=== PATIENT | female | born 1970 | race Caucasian/White ===

== ENCOUNTER 2022-05-30 08:15 | Outpatient (RCR) | payer MEDICARE, SELFPAY ==
[2022-05-30] MEDS: Normal Saline Flush 10 ML SYR IVP (08:37)
[2022-05-30 09:02] LABS: Abs Immature Grans 0.04 10^3/uL (0.0-0.06); Absolute Basophil Count 0.07 10^3/uL (0.0-0.2); Absolute Eosinophil Count 0.04 10^3/uL (0.0-0.7); Absolute Lymphocyte Count 2.56 10^3/uL (1.2-3.4); Absolute Monocyte Count 1.16 10^3/uL (0.1-0.8); Basophils % 0.7; Eosinophils % 0.4; HCT 37.3 % (36.0-46.0); HGB 12.6 g/dL (11.2-15.7); Immature Grans % 0.4; Lymphocytes % 26.2; MCH 32.9 pg (27.0-33.0); MCHC 33.8 % (32.0-36.0); MCV 97 fL (80-95); MPV 9.2 fL (8.0-11.0); Monocytes % 11.9; Neutrophils % 60.4; Platelet Count 517 10^3/uL (130-400); RBC 3.83 10^6/uL (3.93-5.22); RDW 14.1 % (11.7-14.6); RDW-SD 49.2 fL; WBC 9.77 10^3/uL (4.4-10.8)
[2022-05-30 09:17] LABS: ALT 98 U/L (14-59); AST 41 U/L (15-37); Albumin 3.7 g/dL (3.4-5.0); Alkaline Phosphatase 134 U/L (46-116); Anion Gap 10.4 mmol/L (3-11); BUN 18 mg/dL (7-18); Bilirubin, Total 0.4 mg/dL (0.2-1.0); CO2 24.6 mmol/L (21.0-32.0); CREATININE 0.7 mg/dL (0.55-1.02); Calcium 9.3 mg/dL (8.5-10.1); Chloride 102 mmol/L (98-107); Glucose 89 mg/dL (74-106); Potassium 4.1 mmol/L (3.5-5.1); Sodium 137 mmol/L (136-145); Total Protein 7.6 g/dL (6.4-8.2)
== END 2022-06-18 23:59 | disposition home or self-care (01) ==
LOC: INF 08:15
PROVIDERS: PCP Physician Assistant Medical; Visit Provider Internal Medicine Hematology & Oncology
DX: C50.512 Malignant neoplasm of lower-outer quadrant of left female breast (principal); Z17.1 Estrogen receptor negative status [ER-]; Z45.2 Encounter for adjustment and management of vascular access device
CPT/HCPCS: 36591; 80053; 85025

== ENCOUNTER 2022-07-11 04:10 | Outpatient (RCR) | payer MEDICARE, SELFPAY ==
[2022-06-20] MEDS: Normal Saline Flush 10 ML SYR IVP (08:52)
[2022-06-20 09:14] LABS: Abs Immature Grans 0.01 10^3/uL (0.0-0.06); Absolute Basophil Count 0.09 10^3/uL (0.0-0.2); Absolute Eosinophil Count 0.03 10^3/uL (0.0-0.7); Absolute Lymphocyte Count 3.04 10^3/uL (1.2-3.4); Absolute Monocyte Count 1.19 10^3/uL (0.1-0.8); Eosinophils % 0.3; HCT 36.5 % (36.0-46.0); HGB 12.2 g/dL (11.2-15.7); Immature Grans % 0.1; Lymphocytes % 35.1; MCH 33.2 pg (27.0-33.0); MCHC 33.4 % (32.0-36.0); MCV 100 fL (80-95); MPV 8.9 fL (8.0-11.0); Monocytes % 13.7; Neutrophils % 49.8; Platelet Count 337 10^3/uL (130-400); RBC 3.67 10^6/uL (3.93-5.22); RDW 15.4 % (11.7-14.6); RDW-SD 56.2 fL; WBC 8.66 10^3/uL (4.4-10.8)
[2022-06-20 09:22] LABS: ALT 124 U/L (14-59); AST 62 U/L (15-37); Albumin 3.5 g/dL (3.4-5.0); Alkaline Phosphatase 127 U/L (46-116); Anion Gap 8.6 mmol/L (3-11); BUN 14 mg/dL (7-18); Bilirubin, Total 0.4 mg/dL (0.2-1.0); CO2 26.4 mmol/L (21.0-32.0); CREATININE 0.8 mg/dL (0.55-1.02); Calcium 9.4 mg/dL (8.5-10.1); Chloride 102 mmol/L (98-107); Glucose 89 mg/dL (74-106); Potassium 3.8 mmol/L (3.5-5.1); Sodium 137 mmol/L (136-145); Total Protein 7.5 g/dL (6.4-8.2)
[2022-07-11] MEDS: Normal Saline Flush 10 ML SYR IVP (09:03)
[2022-07-11 09:10] LABS: Abs Immature Grans 0.03 10^3/uL (0.0-0.06); Absolute Basophil Count 0.07 10^3/uL (0.0-0.2); Absolute Eosinophil Count 0.01 10^3/uL (0.0-0.7); Absolute Lymphocyte Count 3.46 10^3/uL (1.2-3.4); Absolute Monocyte Count 1.28 10^3/uL (0.1-0.8); Absolute Neutrophil Count 4.43 10^3/uL (1.2-6.7); Basophils % 0.8; Eosinophils % 0.1; HCT 38.6 % (36.0-46.0); HGB 13.2 g/dL (11.2-15.7); Immature Grans % 0.3; Lymphocytes % 37.3; MCH 34.7 pg (27.0-33.0); MCHC 34.2 % (32.0-36.0); MCV 102 fL (80-95); MPV 8.6 fL (8.0-11.0); Monocytes % 13.8; Neutrophils % 47.7; Platelet Count 337 10^3/uL (130-400); RDW-SD 60.1 fL; WBC 9.28 10^3/uL (4.4-10.8)
[2022-07-11 09:28] LABS: ALT 93 U/L (14-59); AST 48 U/L (15-37); Albumin 3.6 g/dL (3.4-5.0); Alkaline Phosphatase 140 U/L (46-116); Anion Gap 8.2 mmol/L (3-11); BUN 19 mg/dL (7-18); Bilirubin, Total 0.3 mg/dL (0.2-1.0); CO2 25.8 mmol/L (21.0-32.0); CREATININE 0.9 mg/dL (0.55-1.02); Calcium 9.4 mg/dL (8.5-10.1); Chloride 103 mmol/L (98-107); Estimated GFR 76.92 (mL/min/1.73m2); Glucose 99 mg/dL (74-106); Potassium 4.3 mmol/L (3.5-5.1); Sodium 137 mmol/L (136-145); Total Protein 7.7 g/dL (6.4-8.2)
== END 2022-07-19 23:59 | disposition home or self-care (01) ==
LOC: INF 04:10
PROVIDERS: PCP Physician Assistant Medical; Visit Provider Internal Medicine Hematology & Oncology
DX: C50.512 Malignant neoplasm of lower-outer quadrant of left female breast (principal); Z45.2 Encounter for adjustment and management of vascular access device
CPT/HCPCS: 36591; 80053; 85025

== ENCOUNTER 2022-08-01 01:18 | Outpatient (RCR) | payer MEDICARE, MEDICAID, SELFPAY ==
[2022-08-01] MEDS: Normal Saline Flush 10 ML SYR IVP (08:32)
[2022-08-01 11:57] LABS: Abs Immature Grans 0.01 10^3/uL (0.0-0.06); Absolute Basophil Count 0.08 10^3/uL (0.0-0.2); Absolute Eosinophil Count 0.02 10^3/uL (0.0-0.7); Absolute Lymphocyte Count 3.12 10^3/uL (1.2-3.4); Absolute Monocyte Count 1.32 10^3/uL (0.1-0.8); Basophils % 0.9; Eosinophils % 0.2; HGB 11.7 g/dL (11.2-15.7); Immature Grans % 0.1; Lymphocytes % 36.5; MCH 35.1 pg (27.0-33.0); MCHC 33.4 % (32.0-36.0); MCV 105 fL (80-95); MPV 8.8 fL (8.0-11.0); Monocytes % 15.4; Neutrophils % 46.9; Platelet Count 302 10^3/uL (130-400); RBC 3.33 10^6/uL (3.93-5.22); RDW 16.5 % (11.7-14.6); RDW-SD 65.2 fL; WBC 8.55 10^3/uL (4.4-10.8)
[2022-08-01 11:59] LABS: ALT 70 U/L (14-59); AST 45 U/L (15-37); Alkaline Phosphatase 111 U/L (46-116); Anion Gap 6.2 mmol/L (3-11); BUN 17 mg/dL (7-18); Bilirubin, Total 0.3 mg/dL (0.2-1.0); CO2 26.8 mmol/L (21.0-32.0); CREATININE 0.8 mg/dL (0.55-1.02); Chloride 107 mmol/L (98-107); Glucose 100 mg/dL (74-106); Poikilocytes 1+; Potassium 4.1 mmol/L (3.5-5.1); Sodium 140 mmol/L (136-145); Total Protein 6.6 g/dL (6.4-8.2)
== END 2022-08-18 23:59 | disposition home or self-care (01) ==
LOC: INF 01:18
PROVIDERS: PCP Physician Assistant Medical; Visit Provider Internal Medicine Hematology & Oncology
DX: C50.512 Malignant neoplasm of lower-outer quadrant of left female breast (principal); Z45.2 Encounter for adjustment and management of vascular access device
CPT/HCPCS: 36591; 80053; 85025

== ENCOUNTER 2022-09-12 02:39 | Outpatient (RCR) | payer MEDICARE, MEDICAID, SELFPAY ==
[2022-08-22] MEDS: Normal Saline Flush 10 ML SYR IVP (08:06)
[2022-08-22 08:39] LABS: Abs Immature Grans 0.03 10^3/uL (0.0-0.06); Absolute Basophil Count 0.06 10^3/uL (0.0-0.2); Absolute Eosinophil Count 0.01 10^3/uL (0.0-0.7); Absolute Lymphocyte Count 2.58 10^3/uL (1.2-3.4); Absolute Monocyte Count 0.88 10^3/uL (0.1-0.8); Absolute Neutrophil Count 3.99 10^3/uL (1.2-6.7); Basophils % 0.8; Eosinophils % 0.1; HCT 35.5 % (36.0-46.0); HGB 12.1 g/dL (11.2-15.7); Immature Grans % 0.4; Lymphocytes % 34.2; MCH 35.9 pg (27.0-33.0); MCHC 34.1 % (32.0-36.0); MCV 105 fL (80-95); Monocytes % 11.7; Neutrophils % 52.8; Platelet Count 232 10^3/uL (130-400); RBC 3.37 10^6/uL (3.93-5.22); RDW 15.4 % (11.7-14.6); RDW-SD 59.7 fL; WBC 7.55 10^3/uL (4.4-10.8)
[2022-08-22 08:47] LABS: Diff Comment Diff Reviewed
[2022-08-22 08:48] LABS: Macrocytosis 2+
[2022-08-22 08:53] LABS: ALT 69 U/L (14-59); AST 45 U/L (15-37); Alkaline Phosphatase 129 U/L (46-116); Anion Gap 6.9 mmol/L (3-11); BUN 18 mg/dL (7-18); Bilirubin, Total 0.2 mg/dL (0.2-1.0); CO2 28.1 mmol/L (21.0-32.0); CREATININE 0.6 mg/dL (0.55-1.02); Chloride 104 mmol/L (98-107); Estimated GFR 107.93 (mL/min/1.73m2); Glucose 89 mg/dL (74-106); Potassium 4.4 mmol/L (3.5-5.1); Sodium 139 mmol/L (136-145); Total Protein 6.9 g/dL (6.4-8.2)
[2022-09-12 09:15] LABS: Abs Immature Grans 0.02 10^3/uL (0.0-0.06); Absolute Basophil Count 0.03 10^3/uL (0.0-0.2); Absolute Eosinophil Count 0.01 10^3/uL (0.0-0.7); Absolute Lymphocyte Count 2.23 10^3/uL (1.2-3.4); Absolute Monocyte Count 0.73 10^3/uL (0.1-0.8); Absolute Neutrophil Count 2.76 10^3/uL (1.2-6.7); Basophils % 0.5; Eosinophils % 0.2; HCT 33.2 % (36.0-46.0); HGB 11.2 g/dL (11.2-15.7); Immature Grans % 0.3; Lymphocytes % 38.6; MCH 35.7 pg (27.0-33.0); MCHC 33.7 % (32.0-36.0); MCV 106 fL (80-95); MPV 9.4 fL (8.0-11.0); Monocytes % 12.6; Neutrophils % 47.8; Platelet Count 152 10^3/uL (130-400); RBC 3.14 10^6/uL (3.93-5.22); RDW 15.4 % (11.7-14.6); RDW-SD 58.8 fL; WBC 5.78 10^3/uL (4.4-10.8)
[2022-09-12 09:28] LABS: ALT 81 U/L (14-59); AST 47 U/L (15-37); Albumin 2.8 g/dL (3.4-5.0); Alkaline Phosphatase 116 U/L (46-116); Anion Gap 5.9 mmol/L (3-11); BUN 18 mg/dL (7-18); Bilirubin, Total 0.3 mg/dL (0.2-1.0); CO2 28.1 mmol/L (21.0-32.0); CREATININE 0.6 mg/dL (0.55-1.02); Calcium 8.8 mg/dL (8.5-10.1); Chloride 104 mmol/L (98-107); Estimated GFR 107.26 (mL/min/1.73m2); Glucose 113 mg/dL (74-106); Potassium 3.8 mmol/L (3.5-5.1); Sodium 138 mmol/L (136-145); Total Protein 6.7 g/dL (6.4-8.2)
== END 2022-09-18 23:59 | disposition home or self-care (01) ==
LOC: INF 02:39
PROVIDERS: PCP Physician Assistant Medical; Visit Provider Internal Medicine Hematology & Oncology
DX: C50.512 Malignant neoplasm of lower-outer quadrant of left female breast (principal); Z45.2 Encounter for adjustment and management of vascular access device
CPT/HCPCS: 36415; 36591; 80053; 85025

== ENCOUNTER 2022-09-12 12:09 | Outpatient (CLI) | payer MEDICARE, MEDICAID, SELFPAY ==
--- NOTE | 2022-09-12 13:10 | DI.RAD_ITS ---
Exam(s) XR CHEST 2V PA LATERAL EXAM: XR CHEST 2V PA LATERAL CLINICAL HISTORY: BREAST CANCER C50.512 Z17.1 CHECK POSITION CENTRAL CATHETER TECHNIQUE: 2D digital imaging was performed of the chest. Two images were obtained. PA and lateral views were obtained. COMPARISON: No exams were available for comparison FINDINGS: MEDIASTINUM: Normal. HEART: Normal. PULMONARY VASCULATURE: Normal. LUNGS: Clear. PLEURAL SPACE: No pleural effusion or pneumothorax. BONE:Within normal limits for the patient's age. OTHER FINDINGS:The right-sided port is in place. The tip is in good position at the junction of the superior vena cava and right atrium. IMPRESSION: 1. No acute pulmonary findings. 2. The tip of the right-sided port is in good position at the junction of the superior vena cava and right atrium. DATA REPOSITORY: RADIATION DOSE DELIVERED:
== END 2022-09-12 12:29 ==
PROVIDERS: PCP Physician Assistant Medical; Visit Provider Internal Medicine Hematology & Oncology
DX: C50.512 Malignant neoplasm of lower-outer quadrant of left female breast (principal); Z17.1 Estrogen receptor negative status [ER-]
CPT/HCPCS: 36415; 80053; 71046; 85025

== ENCOUNTER 2022-10-03 01:06 | Outpatient (RCR) | payer MEDICARE, MEDICAID, SELFPAY ==
[2022-10-03] MEDS: Normal Saline Flush 10 ML SYR IVP (08:56)
[2022-10-03 09:23] LABS: Abs Immature Grans 0.01 10^3/uL (0.0-0.06); Absolute Basophil Count 0.04 10^3/uL (0.0-0.2); Absolute Eosinophil Count 0.05 10^3/uL (0.0-0.7); Absolute Lymphocyte Count 3.05 10^3/uL (1.2-3.4); Absolute Monocyte Count 0.84 10^3/uL (0.1-0.8); Absolute Neutrophil Count 3.32 10^3/uL (1.2-6.7); Basophils % 0.5; Eosinophils % 0.7; HGB 13.1 g/dL (11.2-15.7); Immature Grans % 0.1; Lymphocytes % 41.7; MCH 36.6 pg (27.0-33.0); MCHC 33.6 % (32.0-36.0); MCV 109 fL (80-95); MPV 8.7 fL (8.0-11.0); Monocytes % 11.5; Neutrophils % 45.5; Platelet Count 259 10^3/uL (130-400); RBC 3.58 10^6/uL (3.93-5.22); RDW 14.6 % (11.7-14.6); RDW-SD 59.2 fL; WBC 7.31 10^3/uL (4.4-10.8)
[2022-10-03 09:36] LABS: ALT 49 U/L (14-59); AST 31 U/L (15-37); Albumin 3.2 g/dL (3.4-5.0); Alkaline Phosphatase 106 U/L (46-116); Anion Gap 6.7 mmol/L (3-11); BUN 18 mg/dL (7-18); Bilirubin, Total 0.3 mg/dL (0.2-1.0); CO2 27.3 mmol/L (21.0-32.0); CREATININE 0.8 mg/dL (0.55-1.02); Calcium 8.8 mg/dL (8.5-10.1); Chloride 108 mmol/L (98-107); Estimated GFR 88.05 (mL/min/1.73m2); Glucose 97 mg/dL (74-106); Potassium 3.9 mmol/L (3.5-5.1); Sodium 142 mmol/L (136-145); Total Protein 7.1 g/dL (6.4-8.2)
== END 2022-10-18 23:59 | disposition home or self-care (01) ==
LOC: INF 01:06
PROVIDERS: PCP Physician Assistant Medical; Visit Provider Internal Medicine Hematology & Oncology
DX: Z17.1 Estrogen receptor negative status [ER-] (principal); Z45.2 Encounter for adjustment and management of vascular access device
CPT/HCPCS: 36591; 80053; 85025

== ENCOUNTER 2022-11-14 03:38 | Outpatient (RCR) | payer MEDICARE, MEDICAID, SELFPAY ==
[2022-11-14] MEDS: Normal Saline Flush 10 ML SYR IVP (08:59)
[2022-11-14] MEDS: Heparin 500 UNITS/5 ML SYRINGE IV (08:59)
[2022-11-14 09:24] LABS: Abs Immature Grans 0.01 10^3/uL (0.0-0.06); Absolute Basophil Count 0.06 10^3/uL (0.0-0.2); Absolute Eosinophil Count 0.16 10^3/uL (0.0-0.7); Absolute Lymphocyte Count 3.32 10^3/uL (1.2-3.4); Absolute Monocyte Count 0.63 10^3/uL (0.1-0.8); Absolute Neutrophil Count 3.91 10^3/uL (1.2-6.7); Basophils % 0.7; HCT 39.4 % (36.0-46.0); HGB 13.6 g/dL (11.2-15.7); Immature Grans % 0.1; MCH 35.1 pg (27.0-33.0); MCHC 34.5 % (32.0-36.0); MCV 102 fL (80-95); MPV 8.7 fL (8.0-11.0); Monocytes % 7.8; Neutrophils % 48.4; Platelet Count 272 10^3/uL (130-400); RBC 3.87 10^6/uL (3.93-5.22); RDW 11.9 % (11.7-14.6); RDW-SD 44.9 fL; WBC 8.09 10^3/uL (4.4-10.8)
[2022-11-14 09:39] LABS: ALT 34 U/L (14-59); AST 25 U/L (15-37); Albumin 3.7 g/dL (3.4-5.0); Alkaline Phosphatase 122 U/L (46-116); Anion Gap 8.4 mmol/L (3-11); BUN 13 mg/dL (7-18); Bilirubin, Total 0.4 mg/dL (0.2-1.0); CO2 26.6 mmol/L (21.0-32.0); CREATININE 0.8 mg/dL (0.55-1.02); Calcium 9.3 mg/dL (8.5-10.1); Chloride 104 mmol/L (98-107); Estimated GFR 88.05 (mL/min/1.73m2); Glucose 95 mg/dL (74-106); Potassium 4.2 mmol/L (3.5-5.1); Sodium 139 mmol/L (136-145); Total Protein 7.6 g/dL (6.4-8.2)
== END 2022-11-18 23:59 | disposition home or self-care (01) ==
LOC: INF 03:38
PROVIDERS: PCP Physician Assistant Medical; Visit Provider Internal Medicine Hematology & Oncology
DX: C50.512 Malignant neoplasm of lower-outer quadrant of left female breast (principal); Z45.2 Encounter for adjustment and management of vascular access device
CPT/HCPCS: 36591; 80053; 85025

== ENCOUNTER 2023-01-09 03:30 | Outpatient (RCR) | payer MEDICARE, MEDICAID, SELFPAY ==
[2023-01-09] MEDS: Normal Saline Flush 10 ML SYR IVP (08:33)
[2023-01-09 08:38] LABS: Abs Immature Grans 0.02 10^3/uL (0.0-0.06); Absolute Basophil Count 0.06 10^3/uL (0.0-0.2); Absolute Eosinophil Count 0.08 10^3/uL (0.0-0.7); Absolute Lymphocyte Count 3.19 10^3/uL (1.2-3.4); Absolute Monocyte Count 0.72 10^3/uL (0.1-0.8); Absolute Neutrophil Count 3.84 10^3/uL (1.2-6.7); Basophils % 0.8; HCT 37.9 % (36.0-46.0); HGB 13.1 g/dL (11.2-15.7); Immature Grans % 0.3; Lymphocytes % 40.3; MCH 34.9 pg (27.0-33.0); MCHC 34.6 % (32.0-36.0); MCV 101 fL (80-95); MPV 8.9 fL (8.0-11.0); Monocytes % 9.1; Neutrophils % 48.5; Platelet Count 297 10^3/uL (130-400); RBC 3.75 10^6/uL (3.93-5.22); RDW 13.4 % (11.7-14.6); RDW-SD 49.7 fL; WBC 7.91 10^3/uL (4.4-10.8)
[2023-01-09 09:00] LABS: ALT 49 U/L (14-59); AST 29 U/L (15-37); Albumin 3.8 g/dL (3.4-5.0); Alkaline Phosphatase 132 U/L (46-116); Anion Gap 11.2 mmol/L (3-11); BUN 16 mg/dL (7-18); Bilirubin, Total 0.4 mg/dL (0.2-1.0); CO2 25.8 mmol/L (21.0-32.0); CREATININE 0.7 mg/dL (0.55-1.02); Chloride 100 mmol/L (98-107); Estimated GFR 103.35 (mL/min/1.73m2); Glucose 89 mg/dL (74-106); Potassium 4.2 mmol/L (3.5-5.1); Sodium 137 mmol/L (136-145); Total Protein 8.1 g/dL (6.4-8.2)
== END 2023-01-18 23:59 | disposition home or self-care (01) ==
LOC: INF 03:30
PROVIDERS: PCP Physician Assistant Medical; Visit Provider Internal Medicine Hematology & Oncology
DX: C50.512 Malignant neoplasm of lower-outer quadrant of left female breast (principal); Z17.1 Estrogen receptor negative status [ER-]
CPT/HCPCS: 36591; 80053; 85025

== ENCOUNTER 2023-01-30 00:59 | Outpatient (RCR) | payer MEDICARE, MEDICAID, SELFPAY ==
[2023-01-30 08:33] LABS: Abs Immature Grans 0.01 10^3/uL (0.0-0.06); Absolute Basophil Count 0.04 10^3/uL (0.0-0.2); Absolute Eosinophil Count 0.06 10^3/uL (0.0-0.7); Absolute Lymphocyte Count 2.38 10^3/uL (1.2-3.4); Absolute Monocyte Count 0.68 10^3/uL (0.1-0.8); Absolute Neutrophil Count 3.52 10^3/uL (1.2-6.7); Basophils % 0.6; Eosinophils % 0.9; HCT 36.6 % (36.0-46.0); HGB 12.6 g/dL (11.2-15.7); Immature Grans % 0.1; Lymphocytes % 35.6; MCHC 34.4 % (32.0-36.0); MCV 102 fL (80-95); MPV 8.7 fL (8.0-11.0); Monocytes % 10.2; Neutrophils % 52.6; Platelet Count 243 10^3/uL (130-400); RDW 13.3 % (11.7-14.6); RDW-SD 50.5 fL; WBC 6.69 10^3/uL (4.4-10.8)
[2023-01-30] MEDS: Normal Saline Flush 10 ML SYR IVP (08:34)
[2023-01-30 08:50] LABS: ALT 34 U/L (14-59); AST 24 U/L (15-37); Albumin 3.5 g/dL (3.4-5.0); Alkaline Phosphatase 123 U/L (46-116); Anion Gap 7.5 mmol/L (3-11); BUN 21 mg/dL (7-18); Bilirubin, Total 0.3 mg/dL (0.2-1.0); CO2 25.5 mmol/L (21.0-32.0); CREATININE 0.8 mg/dL (0.55-1.02); Calcium 9.2 mg/dL (8.5-10.1); Chloride 103 mmol/L (98-107); Estimated GFR 88.05 (mL/min/1.73m2); Glucose 94 mg/dL (74-106); Potassium 4.5 mmol/L (3.5-5.1); Sodium 136 mmol/L (136-145); Total Protein 7.6 g/dL (6.4-8.2)
== END 2023-02-18 23:59 | disposition home or self-care (01) ==
LOC: INF 00:59
PROVIDERS: PCP Physician Assistant Medical; Visit Provider Internal Medicine Hematology & Oncology
DX: C50.512 Malignant neoplasm of lower-outer quadrant of left female breast (principal); Z17.1 Estrogen receptor negative status [ER-]; Z45.2 Encounter for adjustment and management of vascular access device
CPT/HCPCS: 36591; 80053; 85025

== ENCOUNTER 2023-03-14 00:25 | Outpatient (RCR) | payer MEDICARE, MEDICAID, SELFPAY ==
[2023-02-20] MEDS: Normal Saline Flush 10 ML SYR IVP (09:28)
[2023-02-20 10:09] LABS: Abs Immature Grans 0.01 10^3/uL (0.0-0.06); Absolute Basophil Count 0.04 10^3/uL (0.0-0.2); Absolute Lymphocyte Count 1.07 10^3/uL (1.2-3.4); Absolute Monocyte Count 0.65 10^3/uL (0.1-0.8); Absolute Neutrophil Count 3.32 10^3/uL (1.2-6.7); Basophils % 0.8; Eosinophils % 1.9; HGB 11.9 g/dL (11.2-15.7); Immature Grans % 0.2; Lymphocytes % 20.6; MCH 34.4 pg (27.0-33.0); MCV 101 fL (80-95); Monocytes % 12.5; Platelet Count 261 10^3/uL (130-400); RBC 3.46 10^6/uL (3.93-5.22); RDW 12.6 % (11.7-14.6); RDW-SD 47.4 fL; WBC 5.19 10^3/uL (4.4-10.8)
[2023-02-20 10:28] LABS: ALT 46 U/L (14-59); AST 29 U/L (15-37); Albumin 3.6 g/dL (3.4-5.0); Alkaline Phosphatase 129 U/L (46-116); Anion Gap 7.9 mmol/L (3-11); BUN 22 mg/dL (7-18); Bilirubin, Total 0.3 mg/dL (0.2-1.0); CO2 25.1 mmol/L (21.0-32.0); CREATININE 0.9 mg/dL (0.55-1.02); Calcium 9.2 mg/dL (8.5-10.1); Chloride 103 mmol/L (98-107); Estimated GFR 76.44 (mL/min/1.73m2); Glucose 84 mg/dL (74-106); Potassium 4.1 mmol/L (3.5-5.1); Sodium 136 mmol/L (136-145); Total Protein 7.3 g/dL (6.4-8.2)
[2023-03-14 07:39] LABS: Abs Immature Grans 0.01 10^3/uL (0.0-0.06); Absolute Basophil Count 0.05 10^3/uL (0.0-0.2); Absolute Eosinophil Count 0.12 10^3/uL (0.0-0.7); Absolute Lymphocyte Count 1.05 10^3/uL (1.2-3.4); Absolute Monocyte Count 0.94 10^3/uL (0.1-0.8); Absolute Neutrophil Count 4.18 10^3/uL (1.2-6.7); Basophils % 0.8; Eosinophils % 1.9; HCT 34.8 % (36.0-46.0); HGB 11.9 g/dL (11.2-15.7); Immature Grans % 0.2; Lymphocytes % 16.5; MCHC 34.2 % (32.0-36.0); MCV 102 fL (80-95); MPV 8.8 fL (8.0-11.0); Monocytes % 14.8; Neutrophils % 65.8; Platelet Count 259 10^3/uL (130-400); RDW 12.9 % (11.7-14.6); RDW-SD 47.9 fL; WBC 6.35 10^3/uL (4.4-10.8)
[2023-03-14] MEDS: Normal Saline Flush 10 ML SYR IVP (07:57)
== END 2023-03-20 23:59 | disposition home or self-care (01) ==
LOC: INF 00:25
PROVIDERS: PCP Physician Assistant Medical; Visit Provider Internal Medicine Hematology & Oncology
DX: C50.512 Malignant neoplasm of lower-outer quadrant of left female breast (principal); Z17.1 Estrogen receptor negative status [ER-]; Z45.2 Encounter for adjustment and management of vascular access device
CPT/HCPCS: 36591; 80053; 85025

== ENCOUNTER 2023-03-14 09:27 | Outpatient (REF) | payer MEDICARE, SELFPAY ==
[2023-03-14 09:48] LABS: ALT 45 U/L (14-59); AST 31 U/L (15-37); Albumin 3.4 g/dL (3.4-5.0); Alkaline Phosphatase 117 U/L (46-116); Anion Gap 6.3 mmol/L (3-11); BUN 22 mg/dL (7-18); Bilirubin, Total 0.4 mg/dL (0.2-1.0); CO2 25.7 mmol/L (21.0-32.0); CREATININE 0.7 mg/dL (0.55-1.02); Calcium 9.2 mg/dL (8.5-10.1); Chloride 103 mmol/L (98-107); Estimated GFR 103.35 (mL/min/1.73m2); Glucose 95 mg/dL (74-106); Potassium 4.4 mmol/L (3.5-5.1); Sodium 135 mmol/L (136-145); Total Protein 7.4 g/dL (6.4-8.2)
== END 2023-03-14 09:28 | disposition home or self-care (01) ==
LOC: LBN 09:27
PROVIDERS: PCP Nurse Practitioner Family; Visit Provider Nurse Practitioner Family
DX: C50.512 Malignant neoplasm of lower-outer quadrant of left female breast (principal); Z17.1 Estrogen receptor negative status [ER-]
CPT/HCPCS: 80053

== ENCOUNTER 2023-04-03 09:21 | Outpatient (RCR) | payer MEDICARE, MEDICAID, SELFPAY ==
[2023-04-03] MEDS: Normal Saline Flush 10 ML SYR IVP (09:12)
[2023-04-03 12:06] LABS: ALT 72 U/L (14-59); AST 36 U/L (15-37); Albumin 3.6 g/dL (3.4-5.0); Alkaline Phosphatase 142 U/L (46-116); Anion Gap 9.3 mmol/L (3-11); BUN 23 mg/dL (7-18); Bilirubin, Total 0.4 mg/dL (0.2-1.0); CO2 25.7 mmol/L (21.0-32.0); CREATININE 0.8 mg/dL (0.55-1.02); Chloride 102 mmol/L (98-107); Estimated GFR 88.05 (mL/min/1.73m2); Glucose 104 mg/dL (74-106); Potassium 4.5 mmol/L (3.5-5.1); Sodium 137 mmol/L (136-145); Total Protein 7.6 g/dL (6.4-8.2)
[2023-04-03 12:07] LABS: Absolute Neutrophil Count 3.23 10^3/uL (1.2-6.7); HCT 38.4 % (36.0-46.0); HGB 13.4 g/dL (11.2-15.7); MCH 35.4 pg (27.0-33.0); MCHC 34.9 % (32.0-36.0); MCV 101 fL (80-95); MPV 8.6 fL (8.0-11.0); Neutrophils % 63.1; Platelet Count 296 10^3/uL (130-400); RBC 3.79 10^6/uL (3.93-5.22); RDW 12.7 % (11.7-14.6); RDW-SD 47.8 fL; WBC 5.12 10^3/uL (4.4-10.8)
[2023-04-03 12:08] LABS: Absolute Basophil Count 0.05 10^3/uL (0.0-0.2); Absolute Eosinophil Count 0.12 10^3/uL (0.0-0.7); Absolute Lymphocyte Count 0.98 10^3/uL (1.2-3.4); Absolute Monocyte Count 0.72 10^3/uL (0.1-0.8); Eosinophils % 2.3; Immature Grans % 0.4; Lymphocytes % 19.1; Monocytes % 14.1
== END 2023-04-20 23:59 | disposition home or self-care (01) ==
LOC: INF 09:21
PROVIDERS: PCP Nurse Practitioner Family; Visit Provider Internal Medicine Hematology & Oncology
DX: C50.512 Malignant neoplasm of lower-outer quadrant of left female breast (principal); Z17.1 Estrogen receptor negative status [ER-]; Z45.2 Encounter for adjustment and management of vascular access device
CPT/HCPCS: 36591; 80053; 85025

== ENCOUNTER 2023-05-15 03:27 | Outpatient (RCR) | payer MEDICARE, MEDICAID, SELFPAY ==
[2023-04-24] MEDS: Normal Saline Flush 10 ML SYR IVP (07:28)
[2023-04-24 07:59] LABS: Abs Immature Grans 0.01 10^3/uL (0.0-0.06); Absolute Basophil Count 0.07 10^3/uL (0.0-0.2); Absolute Eosinophil Count 0.13 10^3/uL (0.0-0.7); Absolute Lymphocyte Count 1.18 10^3/uL (1.2-3.4); Absolute Monocyte Count 1.13 10^3/uL (0.1-0.8); Absolute Neutrophil Count 4.19 10^3/uL (1.2-6.7); Eosinophils % 1.9; HCT 41.2 % (36.0-46.0); HGB 13.9 g/dL (11.2-15.7); Immature Grans % 0.1; Lymphocytes % 17.6; MCH 34.2 pg (27.0-33.0); MCHC 33.7 % (32.0-36.0); MCV 101 fL (80-95); MPV 9.1 fL (8.0-11.0); Monocytes % 16.8; Neutrophils % 62.6; Platelet Count 300 10^3/uL (130-400); RBC 4.07 10^6/uL (3.93-5.22); RDW 13.3 % (11.7-14.6); WBC 6.71 10^3/uL (4.4-10.8)
[2023-04-24 08:16] LABS: ALT 67 U/L (14-59); AST 40 U/L (15-37); Albumin 3.4 g/dL (3.4-5.0); Alkaline Phosphatase 146 U/L (46-116); Anion Gap 10.9 mmol/L (3-11); BUN 30 mg/dL (7-18); Bilirubin, Total 0.5 mg/dL (0.2-1.0); CO2 25.1 mmol/L (21.0-32.0); CREATININE 0.8 mg/dL (0.55-1.02); Calcium 9.8 mg/dL (8.5-10.1); Chloride 99 mmol/L (98-107); Estimated GFR 88.05 (mL/min/1.73m2); Glucose 93 mg/dL (74-106); Potassium 4.7 mmol/L (3.5-5.1); Sodium 135 mmol/L (136-145); Total Protein 8.3 g/dL (6.4-8.2)
[2023-05-15] MEDS: Normal Saline Flush 10 ML SYR IVP (07:24)
[2023-05-15 07:29] LABS: Abs Immature Grans 0.03 10^3/uL (0.0-0.06); Absolute Basophil Count 0.08 10^3/uL (0.0-0.2); Absolute Eosinophil Count 0.16 10^3/uL (0.0-0.7); Absolute Lymphocyte Count 1.12 10^3/uL (1.2-3.4); Absolute Monocyte Count 1.06 10^3/uL (0.1-0.8); Absolute Neutrophil Count 6.16 10^3/uL (1.2-6.7); Basophils % 0.9; Eosinophils % 1.9; HCT 39.1 % (36.0-46.0); Immature Grans % 0.3; MCHC 33.2 % (32.0-36.0); MCV 102 fL (80-95); MPV 8.5 fL (8.0-11.0); Monocytes % 12.3; Neutrophils % 71.6; Platelet Count 300 10^3/uL (130-400); RBC 3.82 10^6/uL (3.93-5.22); RDW 13.1 % (11.7-14.6); RDW-SD 49.4 fL; WBC 8.61 10^3/uL (4.4-10.8)
[2023-05-15 07:48] LABS: ALT 99 U/L (14-59); AST 51 U/L (15-37); Albumin 3.3 g/dL (3.4-5.0); Alkaline Phosphatase 158 U/L (46-116); Anion Gap 11.5 mmol/L (3-11); BUN 19 mg/dL (7-18); Bilirubin, Total 0.4 mg/dL (0.2-1.0); CO2 23.5 mmol/L (21.0-32.0); CREATININE 0.6 mg/dL (0.55-1.02); Calcium 9.2 mg/dL (8.5-10.1); Chloride 105 mmol/L (98-107); Estimated GFR 107.26 (mL/min/1.73m2); Glucose 109 mg/dL (74-106); Potassium 4.4 mmol/L (3.5-5.1); Sodium 140 mmol/L (136-145); Total Protein 7.6 g/dL (6.4-8.2)
== END 2023-05-21 23:59 | disposition home or self-care (01) ==
LOC: INF 03:27
PROVIDERS: PCP Nurse Practitioner Family; Visit Provider Internal Medicine Hematology & Oncology
DX: C50.512 Malignant neoplasm of lower-outer quadrant of left female breast (principal); Z17.1 Estrogen receptor negative status [ER-]; Z45.2 Encounter for adjustment and management of vascular access device
CPT/HCPCS: 36591; 80053; 85025

== ENCOUNTER 2023-06-05 04:02 | Outpatient (RCR) | payer MEDICARE, MEDICAID, SELFPAY ==
[2023-06-05] MEDS: Normal Saline Flush 10 ML SYR IVP (07:54)
[2023-06-05 08:35] LABS: Abs Immature Grans 0.01 10^3/uL (0.0-0.06); Absolute Basophil Count 0.04 10^3/uL (0.0-0.2); Absolute Eosinophil Count 0.11 10^3/uL (0.0-0.7); Absolute Lymphocyte Count 1.42 10^3/uL (1.2-3.4); Absolute Monocyte Count 0.82 10^3/uL (0.1-0.8); Absolute Neutrophil Count 3.63 10^3/uL (1.2-6.7); Basophils % 0.7; Eosinophils % 1.8; HCT 40.5 % (36.0-46.0); Immature Grans % 0.2; Lymphocytes % 23.5; MCH 34.6 pg (27.0-33.0); MCHC 34.6 % (32.0-36.0); MCV 100 fL (80-95); MPV 9.1 fL (8.0-11.0); Monocytes % 13.6; Neutrophils % 60.2; Platelet Count 274 10^3/uL (130-400); RBC 4.05 10^6/uL (3.93-5.22); RDW 12.3 % (11.7-14.6); RDW-SD 45.5 fL; WBC 6.03 10^3/uL (4.4-10.8)
[2023-06-05 08:50] LABS: ALT 58 U/L (14-59); AST 45 U/L (15-37); Albumin 3.5 g/dL (3.4-5.0); Alkaline Phosphatase 117 U/L (46-116); Anion Gap 11.5 mmol/L (3-11); BUN 21 mg/dL (7-18); Bilirubin, Total 0.5 mg/dL (0.2-1.0); CO2 25.5 mmol/L (21.0-32.0); CREATININE 0.8 mg/dL (0.55-1.02); Calcium 9.3 mg/dL (8.5-10.1); Chloride 101 mmol/L (98-107); Estimated GFR 88.05 (mL/min/1.73m2); Glucose 97 mg/dL (74-106); Potassium 3.9 mmol/L (3.5-5.1); Sodium 138 mmol/L (136-145); Total Protein 7.8 g/dL (6.4-8.2)
== END 2023-06-19 23:59 | disposition home or self-care (01) ==
LOC: INF 04:02
PROVIDERS: Nurse Practitioner Family; PCP Nurse Practitioner Family; Visit Provider Internal Medicine Hematology & Oncology
DX: C50.512 Malignant neoplasm of lower-outer quadrant of left female breast (principal); Z17.1 Estrogen receptor negative status [ER-]; Z45.2 Encounter for adjustment and management of vascular access device
CPT/HCPCS: 36591; 80053; 85025

== ENCOUNTER 2023-07-17 05:00 | Outpatient (RCR) | payer MEDICARE, MEDICAID, SELFPAY ==
[2023-06-26] MEDS: Normal Saline Flush 10 ML SYR IVP (07:20)
[2023-06-26 08:22] LABS: Abs Immature Grans 0.01 10^3/uL (0.0-0.06); Absolute Basophil Count 0.05 10^3/uL (0.0-0.2); Absolute Eosinophil Count 0.12 10^3/uL (0.0-0.7); Absolute Lymphocyte Count 1.54 10^3/uL (1.2-3.4); Absolute Monocyte Count 0.73 10^3/uL (0.1-0.8); Absolute Neutrophil Count 3.13 10^3/uL (1.2-6.7); Basophils % 0.9; Eosinophils % 2.2; HCT 41.5 % (36.0-46.0); HGB 14.1 g/dL (11.2-15.7); Immature Grans % 0.2; Lymphocytes % 27.6; MCH 33.9 pg (27.0-33.0); MCV 100 fL (80-95); MPV 9.2 fL (8.0-11.0); Monocytes % 13.1; Platelet Count 273 10^3/uL (130-400); RBC 4.16 10^6/uL (3.93-5.22); RDW 12.7 % (11.7-14.6); RDW-SD 46.8 fL; WBC 5.58 10^3/uL (4.4-10.8)
[2023-06-26 09:05] LABS: ALT 59 U/L (14-59); AST 43 U/L (15-37); Albumin 3.7 g/dL (3.4-5.0); Alkaline Phosphatase 131 U/L (46-116); Anion Gap 12.9 mmol/L (3-11); BUN 16 mg/dL (7-18); Bilirubin, Total 0.5 mg/dL (0.2-1.0); CO2 23.1 mmol/L (21.0-32.0); CREATININE 0.8 mg/dL (0.55-1.02); Calcium 9.4 mg/dL (8.5-10.1); Chloride 101 mmol/L (98-107); Estimated GFR 88.05 (mL/min/1.73m2); Glucose 98 mg/dL (74-106); Potassium 3.9 mmol/L (3.5-5.1); Sodium 137 mmol/L (136-145)
[2023-07-17] MEDS: Normal Saline Flush 10 ML SYR IVP (07:25)
[2023-07-17 07:57] LABS: Abs Immature Grans 0.01 10^3/uL (0.0-0.06); Absolute Basophil Count 0.07 10^3/uL (0.0-0.2); Absolute Eosinophil Count 0.13 10^3/uL (0.0-0.7); Absolute Lymphocyte Count 1.51 10^3/uL (1.2-3.4); Absolute Neutrophil Count 3.15 10^3/uL (1.2-6.7); Basophils % 1.2; Eosinophils % 2.2; HCT 43.8 % (36.0-46.0); HGB 14.9 g/dL (11.2-15.7); Immature Grans % 0.2; Lymphocytes % 25.7; MCV 100 fL (80-95); MPV 8.9 fL (8.0-11.0); Neutrophils % 53.7; Platelet Count 305 10^3/uL (130-400); RBC 4.38 10^6/uL (3.93-5.22); RDW 12.5 % (11.7-14.6); RDW-SD 47.1 fL; WBC 5.87 10^3/uL (4.4-10.8)
[2023-07-17 08:19] LABS: ALT 50 U/L (14-59); AST 40 U/L (15-37); Albumin 3.9 g/dL (3.4-5.0); Alkaline Phosphatase 137 U/L (46-116); Anion Gap 12.1 mmol/L (3-11); BUN 30 mg/dL (7-18); Bilirubin, Total 0.4 mg/dL (0.2-1.0); CO2 24.9 mmol/L (21.0-32.0); CREATININE 1.4 mg/dL (0.55-1.02); Calcium 9.7 mg/dL (8.5-10.1); Chloride 100 mmol/L (98-107); Estimated GFR 44.99 (mL/min/1.73m2); Glucose 75 mg/dL (74-106); Potassium 4.5 mmol/L (3.5-5.1); Sodium 137 mmol/L (136-145); Total Protein 8.5 g/dL (6.4-8.2)
== END 2023-07-20 23:59 | disposition home or self-care (01) ==
LOC: INF 05:00
PROVIDERS: Nurse Practitioner Family; PCP Nurse Practitioner Family; Visit Provider Internal Medicine Hematology & Oncology
DX: C50.512 Malignant neoplasm of lower-outer quadrant of left female breast (principal); Z17.1 Estrogen receptor negative status [ER-]; Z45.2 Encounter for adjustment and management of vascular access device
CPT/HCPCS: 36591; 80053; 85025

== ENCOUNTER 2023-08-07 04:45 | Outpatient (RCR) | payer MEDICARE, MEDICAID, SELFPAY ==
[2023-08-07] MEDS: Normal Saline Flush 10 ML SYR IVP (07:58)
[2023-08-07 08:11] LABS: Abs Immature Grans 0.01 10^3/uL (0.0-0.06); Absolute Basophil Count 0.07 10^3/uL (0.0-0.2); Absolute Eosinophil Count 0.17 10^3/uL (0.0-0.7); Absolute Lymphocyte Count 1.72 10^3/uL (1.2-3.4); Absolute Monocyte Count 1.06 10^3/uL (0.1-0.8); Absolute Neutrophil Count 3.91 10^3/uL (1.2-6.7); Eosinophils % 2.4; HCT 42.6 % (36.0-46.0); HGB 14.3 g/dL (11.2-15.7); Immature Grans % 0.1; Lymphocytes % 24.8; MCH 33.3 pg (27.0-33.0); MCHC 33.6 % (32.0-36.0); MCV 99 fL (80-95); MPV 8.9 fL (8.0-11.0); Monocytes % 15.3; Neutrophils % 56.4; Platelet Count 283 10^3/uL (130-400); RBC 4.29 10^6/uL (3.93-5.22); RDW 13.4 % (11.7-14.6); RDW-SD 48.6 fL; WBC 6.94 10^3/uL (4.4-10.8)
[2023-08-07 08:27] LABS: ALT 84 U/L (14-59); AST 54 U/L (15-37); Alkaline Phosphatase 147 U/L (46-116); Anion Gap 12.1 mmol/L (3-11); BUN 18 mg/dL (7-18); Bilirubin, Total 0.4 mg/dL (0.2-1.0); CO2 22.9 mmol/L (21.0-32.0); CREATININE 0.8 mg/dL (0.55-1.02); Calcium 9.3 mg/dL (8.5-10.1); Chloride 104 mmol/L (98-107); Estimated GFR 88.05 (mL/min/1.73m2); Glucose 72 mg/dL (74-106); Potassium 4.1 mmol/L (3.5-5.1); Sodium 139 mmol/L (136-145); Total Protein 8.3 g/dL (6.4-8.2)
== END 2023-08-19 23:59 | disposition home or self-care (01) ==
LOC: INF 04:45
PROVIDERS: PCP Nurse Practitioner Family; Visit Provider Internal Medicine Hematology & Oncology
DX: C50.512 Malignant neoplasm of lower-outer quadrant of left female breast (principal); Z17.1 Estrogen receptor negative status [ER-]; Z45.2 Encounter for adjustment and management of vascular access device
CPT/HCPCS: 36591; 80053; 85025

== ENCOUNTER 2023-08-28 00:48 | Outpatient (RCR) | payer MEDICARE, MEDICAID, SELFPAY ==
[2023-08-28] MEDS: Normal Saline Flush 10 ML SYR IVP (09:35)
[2023-08-28 13:08] LABS: Absolute Lymphocyte Count 1.45 10^3/uL (1.2-3.4); HGB 14.3 g/dL (11.2-15.7); Lymphocytes % 16.5 %; MCH 34.1 pg (27.0-33.0); MCV 100 fL (80-95); MPV 8.4 fL (8.0-11.0); Neutrophils % 70.4 %; Platelet Count 349 10^3/uL (130-400); RBC 4.19 10^6/uL (3.93-5.22); RDW 13.7 % (11.7-14.6); RDW-SD 50.8 fL; WBC 8.78 10^3/uL (4.4-10.8)
[2023-08-28 13:09] LABS: Abs Immature Grans 0.05 10^3/uL (0.0-0.06); Absolute Basophil Count 0.04 10^3/uL (0.0-0.2); Absolute Eosinophil Count 0.11 10^3/uL (0.0-0.7); Absolute Monocyte Count 0.94 10^3/uL (0.1-0.8); Absolute Neutrophil Count 6.19 10^3/uL (1.2-6.7); Basophils % 0.5 %; Eosinophils % 1.3 %; Immature Grans % 0.6 %; Monocytes % 10.7 %
[2023-08-28 13:18] LABS: Calcium 9.3 mg/dL (8.5-10.1)
[2023-08-28 13:19] LABS: ALT 55 U/L (14-59); AST 39 U/L (15-37); Albumin 4.1 g/dL (3.4-5.0); Alkaline Phosphatase 149 U/L (46-116); Anion Gap 11.5 mmol/L (3-11); BUN 27 mg/dL (7-18); Bilirubin, Total 0.5 mg/dL (0.2-1.0); CO2 23.5 mmol/L (21.0-32.0); CREATININE 0.8 mg/dL (0.55-1.02); Chloride 104 mmol/L (98-107); Estimated GFR 88.05 (mL/min/1.73m2); Glucose 116 mg/dL (74-106); Potassium 4.1 mmol/L (3.5-5.1); Sodium 139 mmol/L (136-145); Total Protein 8.2 g/dL (6.4-8.2)
== END 2023-09-19 23:59 | disposition home or self-care (01) ==
LOC: INF 00:48
PROVIDERS: Nurse Practitioner Family; PCP Nurse Practitioner Family; Visit Provider Internal Medicine Hematology & Oncology
DX: C50.512 Malignant neoplasm of lower-outer quadrant of left female breast (principal); Z17.1 Estrogen receptor negative status [ER-]; Z45.2 Encounter for adjustment and management of vascular access device
CPT/HCPCS: 36591; 80053; 83735; 85025